=== PATIENT | male | born 1955 | race Two or more races ===

== ENCOUNTER 2017-11-04 08:30 | Outpatient (CLI) | END 2017-11-04 08:51 | LOC: AMBL 08:30 | PROVIDERS: ATTEND Emergency Medicine | DX: S06.9X1A Unspecified intracranial injury with loss of consciousness of 30 minutes or less, initial encounter (principal); M25.512 Pain in left shoulder; W17.89XA Other fall from one level to another, initial encounter; Y92.89 Other specified places as the place of occurrence of the external cause; Y99.0 Civilian activity done for income or pay ==